=== PATIENT | female | born 1985 | race Caucasian/White ===

== ENCOUNTER → 2017-04-18 | Outpatient (CLI) | payer OTHER ==
[~2017-04-18] MED LIST: ALDOMET250 MG PO; DOCUSATE SODIU100 MG PO; ENDOCET 5-3251 EACH PO; IBUPROFEN800 MG PO; PRENATAL TABLE1 EAC3 PO; TRILEPTAL300 MG PO
== END | disposition home or self-care (01) ==
LOC: AMB 10:57
PROC: 0HB5XZZ Excision of Chest Skin, External Approach (ICD-10-PCS; principal; 2017-04-18)
DX: D22.5 Melanocytic nevi of trunk (principal)
CPT/HCPCS: 88304